=== PATIENT | female | born 1985 | race Caucasian/White ===

== ENCOUNTER 2016-05-12 15:50 | Outpatient (CLI) | END 2016-05-12 15:51 | disposition home or self-care (01) ==

== ENCOUNTER 2016-05-17 14:14 | Outpatient (CLI) | payer OTHER | END 2016-05-17 14:15 | disposition home or self-care (01) | DX: Z36 Encounter for antenatal screening of mother (principal) ==

== ENCOUNTER 2016-06-06 15:54 | Outpatient (CLI) | payer OTHER | END 2016-06-06 15:55 | disposition home or self-care (01) | DX: Z01.812 Encounter for preprocedural laboratory examination (principal); O34.219 Maternal care for unspecified type scar from previous cesarean delivery ==

== ENCOUNTER 2016-06-08 05:52 | Inpatient (IN) | payer OTHER ==
[2016-06-08] MEDS ORDERED: OXYTOCIN 10 UNIT/ML VIAL IV ONE (07:10)
[2016-06-08] MEDS ORDERED: ePHEDrine 50 MG/ML AMP IVP ONE (07:10)
[2016-06-08] MEDS ORDERED: PHENYLEPHRINE 10 MG/ML VIAL IV ONE (07:10)
[2016-06-08] MEDS ORDERED: ONDANSETRON 4 MG/2 ML VIAL IVP ONE (07:10)
[2016-06-08] MEDS ORDERED: ACETAMINOPHEN 1,000 MG/100 ML VIAL IV ONE (07:10)
[2016-06-08] MEDS ORDERED: LACTATED RINGERS 1,000 ML IV ONE ×3 (07:47→08:32)
[2016-06-08] MEDS ORDERED: ceFAZolin 2 GM/50 ML 50 ML IV SCH (08:00)
[2016-06-08] MEDS ORDERED: BUPIVACAINE 0.25%-EPI 1:200000 PF 30 ML VIAL SUBQ ONE (08:51)
[2016-06-08] MEDS: oxyCODONE 5 MG TABLET PO PRN ×3 (09:53→15:03)
[2016-06-08] MEDS: OXYTOCIN/LACTATED RINGERS 250 ML IV SCH ×3 (10:11→20:28)
[2016-06-08] MEDS ORDERED: oxyCODONE 5 MG TABLET PO PRN (10:15)
[2016-06-08] MEDS: LACTATED RINGERS 1,000 ML IV SCH ×2 (10:29→20:28)
[2016-06-08] MEDS: HYDROmorphone 1 MG/ML SYRINGE IVP PRN ×3 (11:58→16:10)
[2016-06-08] MEDS ORDERED: HYDROmorphone PCA 10 MG IV PRN (17:34)
[2016-06-08] MEDS: SIMETHICONE CHEW 80 MG TABLET PO SCH ×2 (18:27→22:58)
[2016-06-08] MEDS: DOCUSATE SODIUM 100 MG CAPSULE PO SCH (20:28)
[2016-06-08] MEDS ORDERED: ONDANSETRON 4 MG/2 ML VIAL IVP PRN (21:57)
[2016-06-08] MEDS ORDERED: SODIUM CHLORIDE FLUSH 0.9% 10 ML SYRINGE IVP ONE (22:54)
[2016-06-08] MEDS: ACETAMINOPHEN 1,000 MG/100 ML 100 ML IV SCH (23:43)
[2016-06-09] MEDS: oxyCODONE 5 MG TABLET PO PRN ×2 (00:37→04:52)
[2016-06-09] MEDS: OXYTOCIN/LACTATED RINGERS 250 ML IV SCH ×3 (02:40→21:14)
[2016-06-09] MEDS: ACETAMINOPHEN 1,000 MG/100 ML 100 ML IV SCH (05:38)
[2016-06-09] MEDS: SIMETHICONE CHEW 80 MG TABLET PO SCH ×3 (06:02→17:59)
[2016-06-09] MEDS: LACTATED RINGERS 1,000 ML IV SCH ×2 (07:48→21:14)
[2016-06-09] MEDS ORDERED: azaTHIOprine 50 MG TABLET PO SCH ×2 (09:00→12:48)
[2016-06-09] MEDS: DOCUSATE SODIUM 100 MG CAPSULE PO SCH ×2 (09:18→21:51)
[2016-06-09] MEDS ORDERED: SODIUM CHLORIDE FLUSH 0.9% 10 ML SYRINGE IVP ONE (09:21)
[2016-06-09] MEDS: HYDROcod/ACETAM 10 MG/325 MG TABLET PO PRN ×4 (09:35→22:03)
[2016-06-09] MEDS: BUDESONIDE 3 MG PO SCH (11:56)
[2016-06-09] MEDS ORDERED: ACETAMINOPHEN 1,000 MG/100 ML 100 ML IV SCH (12:00)
[2016-06-09] MEDS ORDERED: oxyCODONE 5 MG TABLET PO PRN (21:20)
[2016-06-10] MEDS: HYDROcod/ACETAM 10 MG/325 MG TABLET PO PRN ×4 (01:58→16:31)
[2016-06-10] MEDS ORDERED: diphenhydrAMINE 25 MG CAPSULE PO PRN (05:31)
[2016-06-10] MEDS: LACTATED RINGERS 1,000 ML IV SCH ×2 (06:23→12:20)
[2016-06-10] MEDS: OXYTOCIN/LACTATED RINGERS 250 ML IV SCH ×3 (06:24→12:20)
[2016-06-10] MEDS: DOCUSATE SODIUM 100 MG CAPSULE PO SCH (09:00)
[2016-06-10] MEDS: SIMETHICONE CHEW 80 MG TABLET PO SCH ×2 (09:00→12:42)
[2016-06-10] MEDS: BUDESONIDE 3 MG PO SCH (09:26)
== END 2016-06-10 16:51 | disposition home or self-care (01) | DRG 765 ==
PROC: 10D00Z1 Extraction of Products of Conception, Low, Open Approach (ICD-10-PCS; principal; 2016-06-08 07:30)
DX: O32.2XX0 Maternal care for transverse and oblique lie, not applicable or unspecified (principal); K50.90 Crohn's disease, unspecified, without complications; O34.211 Maternal care for low transverse scar from previous cesarean delivery; O99.62 Diseases of the digestive system complicating childbirth; N85.8 Other specified noninflammatory disorders of uterus; K21.9 Gastro-esophageal reflux disease without esophagitis; O99.52 Diseases of the respiratory system complicating childbirth; J45.909 Unspecified asthma, uncomplicated; O99.89 Other specified diseases and conditions complicating pregnancy, childbirth and the puerperium; N73.6 Female pelvic peritoneal adhesions (postinfective); Z3A.39 39 weeks gestation of pregnancy; Z37.0 Single live birth; Z90.49 Acquired absence of other specified parts of digestive tract; Z88.6 Allergy status to analgesic agent; Z87.442 Personal history of urinary calculi

== ENCOUNTER 2021-11-06 18:07 | Emergency (ER) | payer OTHER ==
[2021-11-06 19:37] LABS: BASOPHILS # (AUTO) 0.1 10^3/uL (0.0-0.1); BASOPHILS % (AUTO) 0.8 %; EOSINOPHILS # (AUTO) 0.1 10^3/uL (0.0-0.7); EOSINOPHILS % (AUTO) 1.7 %; HCT - HEMATOCRIT 40.7 % (37.0-47.0); HGB - HEMOGLOBIN 13.7 g/dL (12.0-16.0); LYMPHOCYTES # (AUTO) 0.8 10^3/uL (1.5-3.5); LYMPHOCYTES % (AUTO) 11.5 %; MEAN CORPUSCULAR HEMOGLOBIN 30.9 pg (27.0-31.0); MEAN CORPUSCULAR HGB CONC 33.7 g/dL (32.0-36.0); MEAN CORPUSCULAR VOLUME 91.9 fL (81.0-99.0); MEAN PLATELET VOLUME 9.3 fL (7.9-10.8); MONOCYTES # (AUTO) 0.8 10^3/uL (0.0-1.0); MONOCYTES % (AUTO) 11.2 %; NEUTROPHILS # (AUTO) 5.4 10^3/uL (1.5-6.6); NEUTROPHILS % (AUTO) 74.4 %; PLT - PLATELET COUNT 282 10^3/uL (130-450); RED BLOOD COUNT 4.43 10^6/uL (4.20-5.40); RED CELL DISTRIBUTION WIDTH 11.8 % (12.0-15.0); WHITE BLOOD COUNT 7.2 x10^3/uL (4.8-10.8)
[2021-11-06] MEDS: ACETAMINOPHEN 325 MG TABLET PO STA ×2 (19:40→20:35)
[2021-11-06] MEDS: guaiFENesin/DEXTROMETHORPHAN 10 ML UDC PO STA (19:40)
[2021-11-06] MEDS: SODIUM CHLORIDE 0.9% 1,000 ML IV STA (19:45)
--- NOTE | 2021-11-06 19:45 | ED Physician Documentation ---
History of Present Illness - Stated complaint Stated Complaint: SOA/C+ - Chief complaint Chief Complaint: Resp - History obtained from History obtained from: Patient - Additonal information Additional information: Patient is a 36-year-old female with a history of Crohn's disease presenting for evaluation of headache, Body aches, runny nose, nonproductive cough. Patient isCOVID-positive. She took a test today. Her symptoms started on Monday. She does have sick contacts at home with a niece that was recently ill. She reports that this is her fourth bout of COVID. She reports having some nausea but no vomiting. She also has had loose stools. Denies blood in her stools. She feels short of breath. She denies chest pain. She denies abdominal pain or dysuria. Review of Systems Constitutional: reports: Fever, Myalgias Nose: reports: Rhinorrhea / runny nose, Congestion Cardiac: denies: Chest pain / pressure Respiratory: reports: Dyspnea, Cough GI: reports: Nausea, Diarrhea. 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 - Present Medications Home Medications: Ambulatory Orders Medication Instructions Recorded Confirmed Albuterol Sulfate [Proair 90 mcg INH DAILY PRN 03/02/15 11/06/21 Respiclick] Multivitamin [Multivitamins] 1 each PO DAILY 03/30/15 11/06/21 Ustekinumab [Stelara] 90 mg SQ ONCE 11/06/21 11/06/21 - Allergies Allergies/Adverse Reactions: Allergies Allergy/AdvReac Type Severity Reaction Status Date / Time codeine Allergy Nausea Verified 11/06/21 18:13 tizanidine Allergy Hallucinati Verified 11/06/21 18:13 ons morphine AdvReac Respiratory Verified 11/06/21 18:13 prochlorperazine AdvReac Unknown Verified 11/06/21 18:13 [From Compazine] prochlorperazine edisylate * AdvReac Unknown Verified 11/06/21 18:13 [From Compazine] prochlorperazine maleate * AdvReac Unknown Verified 11/06/21 18:13 [From Compazine] - Social History Does the pt smoke?: No Smoking Status: Never smoker Does the pt drink ETOH?: No Does the pt have substance abuse?: No - Immunizations Immunizations are current?: Yes - POLST Patient has POLST: No PD ED PE NORMAL - General General: Alert and oriented X 3, No acute distress, Well developed/nourished - HEENT HEENT: Atraumatic, Moist mucous membranes, Pharynx benign (No oral exudate, swelling or erythema) - Neck Neck: Supple, no meningeal sign - Cardiac Cardiac: RRR, No murmur, Strong equal pulses - Respiratory Respiratory: No respiratory distress, Clear bilaterally - Abdomen Abdomen: Normal bowel sounds, Soft, Non tender, Non distended - Derm Derm: Warm and dry - Extremities Extremities: No edema - Neuro Neuro: Alert and oriented X 3, Normal speech - Psych Psych: Normal mood Results - Vitals Vitals: Vital Signs - 24 hr 11/06/21 11/06/21 11/06/21 18:15 18:18 21:13 Temperature 38.1 C H 37.8 C Heart Rate 108 H 97 90 Respiratory 20 20 16 Rate Blood Pressure 149/97 H 139/98 H 130/88 H O2 Saturation 97 97 98 Oxygen O2 Source Room air - Labs Labs: Laboratory Tests 11/06/21 11/06/21 19:22 19:22 WBC 7.2 RBC 4.43 Hgb 13.7 Hct 40.7 MCV 91.9 MCH 30.9 MCHC 33.7 RDW 11.8 L Plt Count 282 MPV 9.3 Neut # (Auto) 5.4 Lymph # (Auto) 0.8 L [place] # (Auto) 0.8 Eos # (Auto) 0.1 Baso # (Auto) 0.1 Absolute Nucleated RBC 0.00 Nucleated RBC % 0.0 Sodium 133 L Potassium 3.7 Chloride 98 L Carbon Dioxide 28 Anion Gap 7.0 BUN 7 Creatinine 0.8 Estimated GFR (MDRD) 81 L Glucose 103 H Calcium 8.7 Total Bilirubin 0.6 AST 16 ALT 15 Alkaline Phosphatase 77 Total Protein 7.2 Albumin 4.1 Globulin 3.1 Albumin/Globulin Ratio 1.3 PD MEDICAL DECISION MAKING - ED course Complexity details: reviewed results, re-evaluated patient, d/w patient ED course: Patient with fever, cough with known COVID. She is febrile here but with normal oxygenation. She does have a history of Crohn's and reports recent diarrhea. Thus labs were obtained. No abdominal tenderness on exam. Patient felt better after IV hydration and antipyretics. Her breathing is nonlabored and lung sounds are clear. She is nontoxic in appearance and does not appear septic. The patient is aware of quarantine rules in regards to COVID. She is advised on return precautions and is comfortable with plan for discharge. 2041 - Patient feeling better, normal oxygenation on room air. Does not appear labored with her breathing. Departure - Departure Disposition: Home, Self Care Clinical Impression: COVID-19 Condition: Stable Instructions: ED URI Viral, COVID-19 [facility] Department Statement Comments: You have a known diagnosis of COVID-19. Your temperature was elevated and you were given medications to help with your fever. You are also given fluids for hydration. Your labs were checked without any significant abnormalities. Please continue using acetaminophen or Motrin to help with fevers and body aches as well as making sure you stay hydrated with fluids. Please get plenty of rest. Please follow CDC guidelines for COVID-19 quarantine.Return to the ER if you have any worsening symptoms such as difficulty breathing, lethargy, vomiting. Discharge Date/Time: 11/06/21 21:13
[2021-11-06 19:48] LABS: ALBUMIN 4.1 g/dL (3.2-5.5); ALBUMIN/GLOBULIN RATIO 1.3 (1.0-2.2); BILIRUBIN,TOTAL 0.6 mg/dL (0.2-1.0); CALCIUM 8.7 mg/dL (8.5-10.3); CREATININE 0.8 mg/dL (0.4-1.0); POTASSIUM 3.7 mmol/L (3.5-5.0); TOTAL PROTEIN 7.2 g/dL (6.7-8.2)
[2021-11-06 21:15] VITALS: BP 130/88
== END 2021-11-06 21:13 | disposition home or self-care (01) ==
LOC: ED 18:07
DX: U07.1 COVID-19 (principal)
CPT/HCPCS: 36415; 80053; 85025; 99282; 99283; A9270

== ENCOUNTER 2023-04-13 10:10 | Emergency (ER) | payer OTHER ==
[2023-04-13 10:37] VITALS: BP 133/92; O2SAT 99
--- NOTE | 2023-04-13 11:29 | ED Physician Documentation ---
PD HPI HEENT - Stated complaint Stated Complaint: BILAT EAR PX, VIRTIGO - Chief complaint Chief Complaint: Heent - History obtained from History obtained from: Patient - Additional information Additional information: 37-year-old woman with frequent bouts of vertigo has had vertigo since Monday. It is associated with notable nystagmus that is worse when she has her left ear down and worsening left ear greater than right pressure, pain, and tinnitus. She is try the [place] maneuver a few times without relief. No focal neurologic symptoms associated with this. 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 - Present Medications Home Medications: Ambulatory Orders Medication Instructions Recorded Confirmed Albuterol Sulfate [Proair 90 mcg INH DAILY PRN 03/02/15 11/06/21 Respiclick] Multivitamin [Multivitamins] 1 each PO DAILY 03/30/15 11/06/21 Ustekinumab [Stelara] 90 mg SQ ONCE 11/06/21 11/06/21 HYDROcod/ACETAM 5/325 [[place] 5/325] 1 ea PO Q6H PRN #18 tablet 02/04/23 methocarbamoL [Robaxin] 500 mg PO TID PRN #20 tablet 02/04/23 Meclizine HCl 12.5 mg PO QID PRN #30 tablet 04/13/23 Ondansetron Odt [Zofran] 4 mg TL Q6H PRN #10 tablet 04/13/23 predniSONE [Deltasone] 20 mg PO [id number] #21 tab 04/13/23 - Allergies Allergies/Adverse Reactions: Allergies Allergy/AdvReac Type Severity Reaction Status Date / Time codeine Allergy Nausea Verified 04/13/23 10:32 tizanidine Allergy Hallucinati Verified 04/13/23 10:32 ons morphine AdvReac Respiratory Verified 04/13/23 10:32 prochlorperazine AdvReac Unknown Verified 04/13/23 10:32 [From Compazine] prochlorperazine edisylate * AdvReac Unknown Verified 04/13/23 10:32 [From Compazine] prochlorperazine maleate * AdvReac Unknown Verified 04/13/23 10:32 [From Compazine] - Social History Does the pt smoke?: No Smoking Status: Never smoker Does the pt drink ETOH?: No Does the pt have substance abuse?: No - Immunizations Immunizations are current?: Yes - POLST Patient has POLST: No PD ED PE NORMAL - Vitals Vital signs reviewed: Yes - General General: Alert and oriented X 3, No acute distress - HEENT HEENT: PERRL, Other (She has nystagmus on leftward gaze. 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, Other (Normal yipikr-if-remi and fxvw-cr-ddex testing, normal gait) Eye Opening: Spontaneous Motor: Obeys Commands Verbal: Oriented GCS Score: 15 - Psych Psych: Normal mood, Normal affect Results - Vitals Vitals: Vital Signs - 24 hr 04/13/23 10:30 Temperature 36.4 C L Heart Rate 88 Respiratory 20 Rate Blood Pressure 133/92 H O2 Saturation 99 Oxygen O2 Source Room air PD Medical Decision Making - ED course ED course: 37-year-old woman with recurrent peripheral vertigo sounding like labyrinthitis because of her worsening pressure and pain especially in the left ear not associated with abnormal physical exam findings of the left TM. She also has tinnitus. So could be recurrent Mnire's or labyrinthitis. Will treat with steroids either way. No meds here as she is driving and did not want to give her meclizine. Also a smaller dose of meclizine that I would usually use as she is "very sensitive" to meds. Departure - Departure Disposition: 01 Home, Self Care Clinical Impression: Vertigo Condition: Good Record reviewed to determine appropriate education?: Yes Instructions: ED Vertigo Unspecified Prescriptions: predniSONE [Deltasone] 20 mg PO [id number] #21 tab Meclizine HCl 12.5 mg PO QID PRN #30 tablet PRN Reason: Vertigo Ondansetron Odt [Zofran] 4 mg TL Q6H PRN #10 tablet PRN Reason: Nausea / Vomiting Comments: Based on your symptoms and physical exam findings, this could be vertigo related to labyrinth-itis or Mnire's disease. Either way the steroid should be very helpful after a day or 2. I also sent a prescription for meclizine to the [facility] ([facility] This is a lower dose of meclizine that I would usually use given that you are very sensitive to medications, but if it is not effective you can certainly double it. That said it is known to be sedating. Call your doctor to arrange a follow-up appointment, make the next available appointment. In the interim, return anytime if worse or if new symptoms develop. Forms: PCP List
[2023-04-13] MEDS ORDERED: ONDANSETRON ODT 4 MG TABLET TL STA (11:37)
== END 2023-04-13 11:48 | disposition home or self-care (01) ==
LOC: ED 10:10
DX: R42 Dizziness and giddiness (principal)
CPT/HCPCS: 99282; 99284; Q0162

== ENCOUNTER 2023-05-02 20:14 | Outpatient (CLI) | payer OTHER | END 2023-05-02 23:59 | disposition critical access hospital (66) | LOC: EMS 20:14 | DX: R11.2 Nausea with vomiting, unspecified (principal); R19.7 Diarrhea, unspecified; R10.84 Generalized abdominal pain; R68.83 Chills (without fever) | CPT/HCPCS: A0425; A0427 ==

== ENCOUNTER 2023-05-02 20:42 | Emergency (ER) | payer OTHER ==
[2023-05-02] MEDS ORDERED: DROPERIDOL 5 MG/2 ML VIAL IVP STA (20:53)
[2023-05-02] MEDS ORDERED: SODIUM CHLORIDE 0.9% 1,000 ML IV STA ×2 (20:53→22:13)
[2023-05-02 21:13] LABS: BASOPHILS # (AUTO) 0.1 10^3/uL (0.0-0.1); BASOPHILS % (AUTO) 0.4 %; EOSINOPHILS # (AUTO) 0.1 10^3/uL (0.0-0.7); EOSINOPHILS % (AUTO) 0.3 %; HCT - HEMATOCRIT 48.7 % (37.0-47.0); HGB - HEMOGLOBIN 15.9 g/dL (12.0-16.0); LYMPHOCYTES # (AUTO) 0.5 10^3/uL (1.5-3.5); MEAN CORPUSCULAR HEMOGLOBIN 30.4 pg (27.0-31.0); MEAN CORPUSCULAR HGB CONC 32.6 g/dL (32.0-36.0); MEAN CORPUSCULAR VOLUME 93.1 fL (81.0-99.0); MEAN PLATELET VOLUME 9.7 fL (7.9-10.8); MONOCYTES # (AUTO) 0.7 10^3/uL (0.0-1.0); MONOCYTES % (AUTO) 3.8 %; NEUTROPHILS # (AUTO) 16.6 10^3/uL (1.5-6.6); NEUTROPHILS % (AUTO) 92.2 %; PLT - PLATELET COUNT 296 10^3/uL (130-450); RED BLOOD COUNT 5.23 10^6/uL (4.20-5.40); RED CELL DISTRIBUTION WIDTH 12.6 % (12.0-15.0)
[2023-05-02 21:25] LABS: ALBUMIN 4.5 g/dL (3.2-5.5); ALBUMIN/GLOBULIN RATIO 1.4 (1.0-2.2); BILIRUBIN,TOTAL 0.9 mg/dL (0.2-1.0); CALCIUM 9.6 mg/dL (8.5-10.3); CREATININE 0.9 mg/dL (0.6-1.3); POTASSIUM 3.6 mmol/L (3.5-4.5); TOTAL PROTEIN 7.7 g/dL (6.4-8.9)
[2023-05-02 21:51] VITALS: O2SAT 100
[2023-05-02] MEDS ORDERED: HYDROmorphone 0.5 MG/0.5 ML SYRINGE IVP STA (21:59)
--- NOTE | 2023-05-02 22:10 | ED Physician Documentation ---
History of Present Illness - Stated complaint Stated Complaint: N/V/D - Chief complaint Chief Complaint: General - History obtained from History obtained from: Patient - Additonal information Additional information: The patient comes to the emergency department chief complaint of nausea, vomiting, and diarrhea, as well as abdominal cramping that started about 24 hours ago. The patient states that she has a history of Crohn's disease and had a resection about 8 years ago for this. She states that her GI feels that she is in remission because of lack of ulcers, but the patient states she has md physician dermatologist kirti IBS and has frequent episodes of abdominal cramping and diarrhea. She states however that this feels like much more than that. She has a history of C. difficile twice in the past for unclear causes and that this feels similar. She states she has not been on any antibacterials recently, though she did have a course of nystatin recently. She denies any blood in her stool. No blood in her vomit. She states that she just water coming out and she has had multiple episodes of diarrhea today. She states that she feels somewhat nauseated but is better than she was now. 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 - Present Medications Home Medications: Ambulatory Orders Medication Instructions Recorded Confirmed Albuterol Sulfate [Proair 90 mcg INH DAILY PRN 03/02/15 11/06/21 Respiclick] Multivitamin [Multivitamins] 1 each PO DAILY 03/30/15 11/06/21 Ustekinumab [Stelara] 90 mg SQ ONCE 11/06/21 11/06/21 HYDROcod/ACETAM 5/325 [[place] 5/325] 1 ea PO Q6H PRN #18 tablet 02/04/23 methocarbamoL [Robaxin] 500 mg PO TID PRN #20 tablet 02/04/23 Meclizine HCl 12.5 mg PO QID PRN #30 tablet 04/13/23 Ondansetron Odt [Zofran] 4 mg TL Q6H PRN #10 tablet 04/13/23 predniSONE [Deltasone] 20 mg PO [id number] #21 tab 04/13/23 - Allergies Allergies/Adverse Reactions: Allergies Allergy/AdvReac Type Severity Reaction Status Date / Time codeine Allergy Nausea Verified 04/13/23 10:32 tizanidine Allergy Hallucinati Verified 04/13/23 10:32 ons morphine AdvReac Respiratory Verified 04/13/23 10:32 prochlorperazine AdvReac Unknown Verified 04/13/23 10:32 [From Compazine] prochlorperazine edisylate * AdvReac Unknown Verified 04/13/23 10:32 [From Compazine] prochlorperazine maleate * AdvReac Unknown Verified 04/13/23 10:32 [From Compazine] - Social History Does the pt smoke?: No Smoking Status: Never smoker Does the pt drink ETOH?: No Does the pt have substance abuse?: No - Immunizations Immunizations are current?: Yes - POLST Patient has POLST: No PD ED PE NORMAL - Vitals Vital signs reviewed: Yes - General General: Alert and oriented X 3, No acute distress, Well developed/nourished - HEENT HEENT: Atraumatic, PERRL, EOMI, Moist mucous membranes - Neck Neck: Supple, no meningeal sign - Cardiac Cardiac: RRR, No murmur, Strong equal pulses - Respiratory Respiratory: No respiratory distress, Clear bilaterally - Abdomen Abdomen: Soft, Non distended, Other (Mild diffuse tenderness, no rebound or guarding.) - Derm Derm: Normal color, Warm and dry, No rash - Extremities Extremities: No deformity, No edema - Neuro Neuro: Alert and oriented X 3 - Psych Psych: Normal mood, Normal affect Results - Vitals Vitals: Vital Signs - 24 hr 05/02/23 20:45 Temperature 35 C L Heart Rate 106 H Respiratory 18 Rate Blood Pressure 118/69 O2 Saturation 100 Oxygen O2 Source Room air - Labs Labs: Laboratory Tests 05/02/23 05/02/23 21:06 21:06 WBC 18.0 H RBC 5.23 Hgb 15.9 Hct 48.7 H MCV 93.1 MCH 30.4 MCHC 32.6 RDW 12.6 Plt Count 296 MPV 9.7 Neut # (Auto) 16.6 H Lymph # (Auto) 0.5 L [place] # (Auto) 0.7 Eos # (Auto) 0.1 Baso # (Auto) 0.1 Absolute Nucleated RBC 0.00 Nucleated RBC % 0.0 Sodium 136 Potassium 3.6 Chloride 101 Carbon Dioxide 20 L Anion Gap 15.0 H BUN 16 Creatinine 0.9 Estimated GFR (MDRD) 70 L Glucose 117 H Calcium 9.6 Total Bilirubin 0.9 AST 15 ALT 14 Alkaline Phosphatase 80 Total Protein 7.7 Albumin 4.5 Globulin 3.2 Albumin/Globulin Ratio 1.4 Lipase 14 PD Medical Decision Making - ED course Complexity details: reviewed results, re-evaluated patient, considered differential, d/w patient ED course: The patient was worked up with laboratory studies, including CBC, ER abdominal panel. CBC showed a white blood cell count of 18,000. The patient's ER abdominal panel is unremarkable. She was able to give a stool sample and C. difficile analysis was ordered and pending at this time. In the meantime, the patient was given 2 L of 0.9 normal saline, as well as doses of droperidol and Toradol. The patient at this time is continuing to receive her second liter of 0.9 normal saline and We are awaiting the final results of the C. difficile toxin analysis. Patient signed out at change of shift to Dr. Oscar, pending the above and final disposition. Departure - Departure Forms: PCP List
[2023-05-02] MEDS ORDERED: KETOROLAC 30 MG/ML VIAL IVP STA (22:11)
--- NOTE | 2023-05-02 23:31 | ED Physician Documentation ---
ED Addendum - Addendum Addendum: 05/02/23 23:32 Patient endorsed to me by Dr. Cunningham awaiting C. difficile specimen. Patient called me to her bedside and requested that she go home and follow-up for results with her primary care provider. She is feeling better and tolerating p.o. Zofran sent electronically to her pharmacy. Return precautions given. Abdominal exam soft nontender nondistended. Impression 1 nausea and vomiting 2 diarrhea Disposition Home Condition stable
[2023-05-03 00:19] VITALS: BP 136/90
== END 2023-05-03 00:05 | disposition home or self-care (01) ==
LOC: EDUNIT# → ED 20:42
DX: R11.2 Nausea with vomiting, unspecified (principal); R19.7 Diarrhea, unspecified
CPT/HCPCS: 36415; 80053; 83690; 85025; 87493; 96361; 96374; 96375; 99284

== ENCOUNTER 2023-09-07 09:10 | Emergency (ER) | payer OTHER ==
[2023-09-07] MEDS: ONDANSETRON ODT 4 MG TABLET TL STA (09:50)
[2023-09-07] MEDS: ACETAMINOPHEN 325 MG TABLET PO STA (09:50)
[2023-09-07 10:00] LABS: BASOPHILS % (AUTO) 0.6 %; HCT - HEMATOCRIT 40.1 % (37.0-47.0); LYMPHOCYTES # (AUTO) 0.3 10^3/uL (1.5-3.5); LYMPHOCYTES % (AUTO) 7.1 %; MEAN CORPUSCULAR HEMOGLOBIN 29.7 pg (27.0-31.0); MEAN CORPUSCULAR HGB CONC 32.4 g/dL (32.0-36.0); MEAN CORPUSCULAR VOLUME 91.6 fL (81.0-99.0); MONOCYTES # (AUTO) 0.6 10^3/uL (0.0-1.0); MONOCYTES % (AUTO) 12.8 %; NEUTROPHILS # (AUTO) 3.8 10^3/uL (1.5-6.6); NEUTROPHILS % (AUTO) 79.3 %; PLT - PLATELET COUNT 235 10^3/uL (130-450); RED BLOOD COUNT 4.38 10^6/uL (4.20-5.40); RED CELL DISTRIBUTION WIDTH 12.4 % (12.0-15.0); WHITE BLOOD COUNT 4.8 x10^3/uL (4.8-10.8)
[2023-09-07 10:16] LABS: ALBUMIN 4.2 g/dL (3.2-5.5); ALBUMIN/GLOBULIN RATIO 1.4 (1.0-2.2); BILIRUBIN,TOTAL 0.4 mg/dL (0.2-1.0); CREATININE 0.8 mg/dL (0.6-1.3); TOTAL PROTEIN 7.2 g/dL (6.4-8.9)
[2023-09-07] MEDS: SODIUM CHLORIDE 0.9% 1,000 ML IV STA (10:37)
[2023-09-07] MEDS: KETOROLAC 30 MG/ML VIAL IVP STA (10:37)
[2023-09-07 10:54] LABS: B. PARAPERTUSSIS- RESP PCR PAN NOT DETECTED; B. PERTUSSIS- RESP PCR PANEL NOT DETECTED; C. PNEUMONIAE- RESP PCR PANEL NOT DETECTED; CORONAVIRUS 229E-RESP PCR NOT DETECTED; CORONAVIRUS HKU1-RESP PCR NOT DETECTED; CORONAVIRUS NL63-RESP PCR NOT DETECTED; CORONAVIRUS OC43-RESP PCR NOT DETECTED; HUMAN METAPNEUMOVIRUS NOT DETECTED; INFLUENZA A H1 2009- RESP PCR DETECTED; INFLUENZA B - RESP PCR PANEL NOT DETECTED; M. PNEUMONIAE- RESP PCR PANEL NOT DETECTED; PARAINFLUENZA VIRUS 1 NOT DETECTED; PARAINFLUENZA VIRUS 2 NOT DETECTED; PARAINFLUENZA VIRUS 3 NOT DETECTED; PARAINFLUENZA VIRUS 4 NOT DETECTED; RHINOVIRUS/ENTEROVIRUS NOT DETECTED; RSV- RESP PCR PANEL NOT DETECTED; SARS-CoV-2 -RESP PCR PANEL NOT DETECTED
[2023-09-07 11:00] LABS: BILIRUBIN,URINE NEGATIVE (NEGATIVE); GLUCOSE, URINE (UA) NEGATIVE (NEGATIVE); KETONES,URINE (UA) >=80 mg/dL (NEGATIVE); LEUKOCYTE ESTERASE, URINE NEGATIVE (NEGATIVE); NITRITE,URINE NEGATIVE (NEGATIVE); OCCULT BLOOD,URINE TRACE-INTA (NEGATIVE); PROTEIN,URINE 30 mg/dL (NEGATIVE); UROBILINOGEN,URINE 0.2 (NORMAL) E.U./dL (NORMAL)
[2023-09-07 11:03] LABS: CLARITY,URINE CLEAR (CLEAR); HCG UR QUAL NEGATIVE
[2023-09-07 11:11] LABS: RAPID STREP SCREEN Negative (Negative)
[2023-09-07 11:17] LABS: BACTERIA,URINE Moderate /HPF (None Seen); RBC,URINE 0-5 /HPF (0-5); SQUAMOUS EPITHELIAL CELL,UR MOD Squamous (<= Few); WBC,URINE 0-3 /HPF (0-5)
--- NOTE | 2023-09-07 11:35 | XRAY Report ---
PROCEDURE: Chest 2V INDICATIONS: SOA TECHNIQUE: 2 views of the chest were acquired. COMPARISON: None. FINDINGS: Surgical changes and devices: None. Lungs and pleura: No pleural effusions or pneumothorax. Lungs are clear. Mediastinum: Mediastinal contours appear normal. Heart size is normal. Bones and chest wall: No suspicious bony lesions. Overlying soft tissues appear unremarkable. IMPRESSION: No acute cardiopulmonary process. Reviewed by: Ced Gordon MD on 09/07/2023 11:34 AM PDT Approved by: Ced Gordon MD on 09/07/2023 11:34 AM PDT Station ID: [id number]
--- NOTE | 2023-09-07 11:36 | ED Physician Documentation ---
History of Present Illness - Stated complaint Stated Complaint: FEVER,FULL BODY ACHES - Chief complaint Chief Complaint: Fever - History obtained from History obtained from: Patient - Additonal information Additional information: Patient is a 37-year-old female without significant past medical history presenting for evaluation of 3 days of fever, body aches, cough and reported nausea this morning. Young daughter is also being evaluated for fever and vomiting today. Patient has been taking ibuprofen and acetaminophen. Has not taken any today. No vomiting but has had some loose stools today. No blood in stools.Reports a sore throat but is tolerating p.o. intake with liquids. Decreased solid food intake. No recent travel or antibiotic use. Review of Systems Constitutional: reports: Fever, Myalgias Throat: reports: Sore throat Respiratory: reports: Cough GI: reports: Nausea. 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 - Present Medications Home Medications: Ambulatory Orders Medication Instructions Recorded Confirmed Albuterol Sulfate [Proair 90 mcg INH DAILY PRN 03/02/15 09/07/23 Respiclick] Ustekinumab [Stelara] 90 mg SQ ONCE 11/06/21 09/07/23 Ondansetron Odt [Zofran] 4 mg TL Q6H PRN #10 tablet 09/07/23 - Allergies Allergies/Adverse Reactions: Allergies Allergy/AdvReac Type Severity Reaction Status Date / Time codeine Allergy Nausea Verified 09/07/23 09:36 tizanidine Allergy Hallucinati Verified 09/07/23 09:36 ons morphine AdvReac Respiratory Verified 09/07/23 09:36 prochlorperazine AdvReac Unknown Verified 09/07/23 09:36 [From Compazine] prochlorperazine edisylate * AdvReac Unknown Verified 09/07/23 09:36 [From Compazine] prochlorperazine maleate * AdvReac Unknown Verified 09/07/23 09:36 [From Compazine] - Social History Does the pt smoke?: No Smoking Status: Never smoker Does the pt drink ETOH?: No Does the pt have substance abuse?: No - Immunizations Immunizations are current?: Yes - POLST Patient has POLST: No PD ED PE NORMAL - General General: Alert and oriented X 3, No acute distress, Well developed/nourished - HEENT HEENT: Atraumatic, Moist mucous membranes, Pharynx benign (No oral swelling, erythema or exudate) - Neck Neck: Supple, no meningeal sign - Cardiac Cardiac: Strong equal pulses, Other (Tachycardic, regular rhythm) - Respiratory Respiratory: No respiratory distress, Clear bilaterally - Abdomen Abdomen: Normal bowel sounds, Soft, Non tender, Non distended - Derm Derm: Warm and dry - Neuro Neuro: Alert and oriented X 3, No motor deficit, Normal speech Results - Vitals Vitals: Vital Signs - 24 hr 09/07/23 09/07/23 09/07/23 09:31 10:20 11:06 Temperature 38.8 C H 36.8 C 36.8 C Heart Rate 125 H 101 H Respiratory 20 15 Rate Blood Pressure 139/87 H 108/71 O2 Saturation 96 97 09/07/23 11:48 Temperature Heart Rate 103 H Respiratory 16 Rate Blood Pressure 102/70 O2 Saturation 99 Oxygen O2 Source Room air - Labs Labs: Microbiology 09/07/23 10:39 Group A Strep Throat Culture - Preliminary Throat CULTURE IN PROGRESS. RESULTS TO FOLLOW. Laboratory Tests 09/07/23 09/07/23 09/07/23 09:52 09:52 09:53 WBC 4.8 RBC 4.38 Hgb 13.0 Hct 40.1 MCV 91.6 MCH 29.7 MCHC 32.4 RDW 12.4 Plt Count 235 MPV 10.0 Neut # (Auto) 3.8 Lymph # (Auto) 0.3 L [place] # (Auto) 0.6 Eos # (Auto) 0.0 Baso # (Auto) 0.0 Absolute Nucleated RBC 0.00 Nucleated RBC % 0.0 Sodium 132 L Potassium 4.0 Chloride 102 Carbon Dioxide 23 Anion Gap 7.0 BUN 11 Creatinine 0.8 Estimated GFR (MDRD) 80 L Glucose 102 Calcium 9.0 Total Bilirubin 0.4 AST 19 ALT 14 Alkaline Phosphatase 60 Total Protein 7.2 Albumin 4.2 Globulin 3.0 Albumin/Globulin Ratio 1.4 Lipase 20 Urine Color Urine Clarity Urine pH Ur Specific [place] Urine Protein Urine Glucose (UA) Urine Ketones Urine Occult Blood Urine Nitrite Urine Bilirubin Urine Urobilinogen Ur Leukocyte Esterase Urine RBC Urine WBC Ur Squamous Epith Cells Urine Bacteria Ur Microscopic Review Urine Culture Comments Urine HCG, Qual Nasal Adenovirus (PCR) NOT DETECTED Nasal B. parapertussis DNA (PCR) NOT DETECTED Nasal Coronavir 229E PCR NOT DETECTED Nasal Coronavir HKU1 PCR NOT DETECTED Nasal Coronavir NL63 PCR NOT DETECTED Nasal Coronavir OC43 PCR NOT DETECTED Nasal Enterovir/Rhinovir PCR NOT DETECTED Nasal Influ A H1 2008 PCR DETECTED A Nasal Influenza B PCR NOT DETECTED Nasal Parainfluen 1 PCR NOT DETECTED Nasal Parainfluen 2 PCR NOT DETECTED Nasal Parainfluen 3 PCR NOT DETECTED Nasal Parainfluen 4 PCR NOT DETECTED Nasal RSV (PCR) NOT DETECTED Nasal B.pertussis DNA PCR NOT DETECTED Nasal C.pneumoniae (PCR) NOT DETECTED Andres Human Metapneumo PCR NOT DETECTED Nasal M.pneumoniae (PCR) NOT DETECTED Nasal SARS-CoV-2 (PCR) NOT DETECTED Group A Strep Rapid 09/07/23 09/07/23 10:39 10:46 WBC RBC Hgb Hct MCV MCH MCHC RDW Plt Count MPV Neut # (Auto) Lymph # (Auto) [place] # (Auto) Eos # (Auto) Baso # (Auto) Absolute Nucleated RBC Nucleated RBC % Sodium Potassium Chloride Carbon Dioxide Anion Gap BUN Creatinine Estimated GFR (MDRD) Glucose Calcium Total Bilirubin AST ALT Alkaline Phosphatase Total Protein Albumin Globulin Albumin/Globulin Ratio Lipase Urine Color DARK YELLOW Urine Clarity CLEAR Urine pH 6.0 Ur Specific [place] 1.025 Urine Protein 30 H Urine Glucose (UA) NEGATIVE Urine Ketones >=80 H Urine Occult Blood TRACE-INTA Urine Nitrite NEGATIVE Urine Bilirubin NEGATIVE Urine Urobilinogen 0.2 (NORMAL) Ur Leukocyte Esterase NEGATIVE Urine RBC 0-5 Urine WBC 0-3 Ur Squamous Epith Cells MOD Squamous H Urine Bacteria Moderate H Ur Microscopic Review INDICATED Urine Culture Comments NOT INDICATED Urine HCG, Qual NEGATIVE Nasal Adenovirus (PCR) Nasal B. parapertussis DNA (PCR) Nasal Coronavir 229E PCR Nasal Coronavir HKU1 PCR Nasal Coronavir NL63 PCR Nasal Coronavir OC43 PCR Nasal Enterovir/Rhinovir PCR Nasal Influ A H1 2008 PCR Nasal Influenza B PCR Nasal Parainfluen 1 PCR Nasal Parainfluen 2 PCR Nasal Parainfluen 3 PCR Nasal Parainfluen 4 PCR Nasal RSV (PCR) Nasal B.pertussis DNA PCR Nasal C.pneumoniae (PCR) Andres Human Metapneumo PCR Nasal M.pneumoniae (PCR) Nasal SARS-CoV-2 (PCR) Group A Strep Rapid Negative PD Medical Decision Making - ED course Complexity details: reviewed results, d/w patient ED course: Patient with fever, cough, body aches for 3 days. Febrile here with tachycar jesus. Labs were ordered at triage including CBC, chemistries, urinalysis, respiratory swab and strep swab. Chest x-ray which I reviewed is negative for pneumonia. Urinalysis negative for infection and . Labs significant for mild hyponatremia of 132. Patient feeling better here with IV fluids, Zofran, Toradol and acetaminophen with reduction in fever and heart rate. Respiratory swab is positive for influenza A. Patient counseled regarding diagnosis and continued supportive care. She is advised on strict return precautions for any worsening symptoms. Departure - Departure Disposition: 01 Home, Self Care Clinical Impression: Influenza A, Hyponatremia Condition: Stable Instructions: ED Flu Prescriptions: Ondansetron Odt [Zofran] 4 mg TL Q6H PRN #10 tablet PRN Reason: Nausea / Vomiting Comments: Your testing today shows that you are positive for influenza A. I have sent an antinausea medication to [facility] in [place]. Please continue to stay hydrated. Your chest XR is negative for pneumonia. Your strep test is negative. Return to the ER with any worsening symptoms. Forms: PCP List Discharge Date/Time: 09/07/23 11:49
[2023-09-07 11:56] VITALS: BP 102/70; O2SAT 99
== END 2023-09-07 11:49 | disposition home or self-care (01) ==
LOC: ED 09:10
DX: J10.1 Influenza due to other identified influenza virus with other respiratory manifestations (principal); E87.1 Hypo-osmolality and hyponatremia; K50.90 Crohn's disease, unspecified, without complications; J45.909 Unspecified asthma, uncomplicated; Z87.442 Personal history of urinary calculi
CPT/HCPCS: 36415; 71046; 80053; 81001; 81025; 83690; 85025; 87070; 87430; 87633; 96361; 96374; 99284; A9270; Q0162; 81003; 87086